=== PATIENT | female | born 1985 | race Caucasian/White ===

== ENCOUNTER → 2017-07-28 | Outpatient (REF) | payer OTHER ==
[2017-08-04 10:36] LABS: HPV LOW VOL RFLX Negative (Negative)
== END ==
LOC: M LAB REF 18:40
DX: Z01.419 Encounter for gynecological examination (general) (routine) without abnormal findings (principal); Z11.51 Encounter for screening for human papillomavirus (HPV)
CPT/HCPCS: G0123

== ENCOUNTER → 2017-12-22 | Outpatient (CLI) | payer BC, OTHER ==
[~2017-12-22] MED LIST: ISOVUE-370 76% 100ML VIAL (Q9967) As Ordered
== END ==
LOC: M RADPRO 13:20
DX: N97.1 Female infertility of tubal origin (principal)
CPT/HCPCS: 58340

== ENCOUNTER → 2018-03-24 | Outpatient (REF) | payer BC, OTHER ==
[2018-03-26 15:39] LABS: HPV HYBRID CAPTURE II Negative (Negative)
== END ==
LOC: M LAB REF 17:19
PROVIDERS: ATTEND Pediatrics
DX: Z12.4 Encounter for screening for malignant neoplasm of cervix (principal)
CPT/HCPCS: 87624; G0123

== ENCOUNTER → 2021-12-24 | Outpatient (REF) | payer OTHER, MEDICAID | LOC: M PLALAB 15:13 | PROVIDERS: ATTEND Obstetrics & Gynecology | DX: Z12.4 Encounter for screening for malignant neoplasm of cervix (principal) ==

== ENCOUNTER → 2022-01-13 | Outpatient (CLI) | payer OTHER | LOC: M WHC 09:59 | PROVIDERS: ATTEND Obstetrics & Gynecology | DX: N64.4 Mastodynia (principal) ==

== ENCOUNTER → 2023-03-16 | Outpatient (REF) | payer MEDICAID, OTHER | LOC: M SFHCWAGY 13:59 | PROVIDERS: ATTEND Obstetrics & Gynecology | DX: Z12.4 Encounter for screening for malignant neoplasm of cervix (principal) ==

== ENCOUNTER → 2023-03-23 | Outpatient (CLI) | payer OTHER | LOC: M WHC 08:59 | PROVIDERS: ATTEND Obstetrics & Gynecology | DX: N93.9 Abnormal uterine and vaginal bleeding, unspecified (principal); N88.8 Other specified noninflammatory disorders of cervix uteri; N83.291 Other ovarian cyst, right side ==

== ENCOUNTER → 2023-04-02 | Outpatient (REF) | payer OTHER, MEDICAID | LOC: M LAB REF 12:43 → M SFHCWAGY 12:43 | PROVIDERS: ATTEND Obstetrics & Gynecology | DX: N93.9 Abnormal uterine and vaginal bleeding, unspecified (principal) ==

== ENCOUNTER → 2024-04-28 | Outpatient (REF) | payer MEDICAID, OTHER ==
[2024-05-02 13:57] LABS: HPV APTIMA Not Detected (Not Detected)
== END ==
LOC: M SFHCWAGY 17:59
PROVIDERS: ATTEND Obstetrics & Gynecology
DX: R87.610 Atypical squamous cells of undetermined significance on cytologic smear of cervix (ASC-US) (principal); N93.9 Abnormal uterine and vaginal bleeding, unspecified

== ENCOUNTER → 2024-11-20 | Day surgery (SDC) | payer OTHER ==
[~2024-11-20] VITALS: Ht 157.5 cm; Wt 114.1 kg
[~2024-11-20] MED LIST changes: +ACETAMINOPHEN 1000MG/100ML IV BAG As Ordered ONE; +ALBUTEROL 6.7 GM INHALER **FOR ANES. CART/OMNICELL ONLY As Ordered ONE; +BUSP5TA PO; +COLA100C5 PO; +DICY20TA20 PO; +DOCUSATE SODIUM 100 MG CAPSULE PO SCH; +FLUO40CA PO; +HYDROMORPHONE HCL 0.5 MG/0.5 ML SYRINGE IV PRN; +HYDROmorphone HCL 2 MG/ML 1 ML VIAL As Ordered ONE; +IBUP80TA PO; +IBUPROFEN 800 MG TAB PO SCH; +ISOVUE-300 61% 100 ML VIAL As Ordered ONE; -ISOVUE-370 76% 100ML VIAL (Q9967) As Ordered; +KETAMINE HCL 200 MG/20 ML VIAL As Ordered ONE; +KETOROLAC 30 MG/ML 1 ML VIAL As Ordered ONE; +KETOROLAC 30 MG/ML 1 ML VIAL IV SCH; +LIDOCAINE 2% 100 MG/5 ML SDV (FOR ANES.) As Ordered ONE; +LR 1,000 ML IV SCH; +MEDR10TA9 PO; +MIDAZOLAM INJ 2 MG/2 ML VIAL As Ordered ONE; +MORPHINE 4 MG/ML 1 ML VIAL IV PRN; +ONDA-282 PO; +ONDANSETRON 4MG 2ML VIAL As Ordered ONE; +ONDANSETRON 4MG 2ML VIAL IV PRN; +PANT40TA29 PO; +PERCOCET 5MG/325MG TAB PO PRN; +PERCOCET PO; +PHENYLephrine 500MCG 5ML (100MCG/ML) SYRINGE As Ordered ONE; +ROCURONIUM BROMIDE 50MG/5ML VIAL As Ordered ONE; +ROPI0.5T33 PO; +SUGAMMADEX SODIUM 500 MG/5 ML VIAL As Ordered ONE; +ceFAZolin SOD 3 GM in DEXTROSE 5% (D5W) MINI-BAG PLU 1... IV ONE; +dexAMETHasone 4 MG/ML 1 ML VIAL As Ordered ONE
[2024-11-20 06:51] LABS: PLATELET COUNT, AUTOMATED 263 10^3/uL (150-450)
[2024-11-20] MEDS: ceFAZolin SOD 2 GM IV ONCE IV ONE (07:41)
[2024-11-20] MEDS: SCOPOLAMINE 1MG TRANSDERMAL PATCH As Ordered ONE (07:45)
[2024-11-20] MEDS: METHYLENE BLUE 0.5% (5 MG/ML) 10 ML AMP As Ordered ONE (09:06)
[2024-11-20] MEDS: ONDANSETRON 4MG 2ML VIAL IV PRN (11:25)
[2024-11-20 11:30] VITALS: BP 145/81; TEMP 97; O2SAT 99
== END | disposition home or self-care (01) ==
LOC: M SDC 06:05
PROVIDERS: ATTEND Obstetrics & Gynecology
DX: N93.9 Abnormal uterine and vaginal bleeding, unspecified (principal); R10.20 Pelvic and perineal pain unspecified side; K21.9 Gastro-esophageal reflux disease without esophagitis; F32.A Depression, unspecified; Z79.899 Other long term (current) drug therapy
CPT/HCPCS: 36415; 58571; 81025; 85027; 86850; 86900; 86901; 88307; J0131; J0665; J0688; J1100; J1171; J1885; J2250; J2371; J2405; J3010; J3490; S2900